=== PATIENT | female | born 1950 | race Caucasian/White ===

== ENCOUNTER → 2018-10-19 | Outpatient (REF) | payer MEDICARE ==
[~2018-10-19] VITALS: Ht 149.9 cm; Wt 68.9 kg
[~2018-10-19] MED LIST: AMBIEN5 MG PO; AMLODIPINE5 MG PO; AMOXICILLIN/CL875 MG PO; CALTRATE PLS PO; FLONASE NASAL50 MCG; HYDROCHLOROT12.5 MG PO; LISINOPRIL 20 MG PO; LYSINE1000 MG PO; PANTOPRAZOLE SO40 M1 PO; PROLIA60 MG/ML SC; TRAZODONE50 MG PO; VITAMIN E400 UNIT PO; WELLBUTRIN150 M1 PO; XANAX0.25 MG PO; [UNRECOGNIZED DRUG - OTHER] PO
== END | disposition home or self-care (01) ==
LOC: INF 10:00
PROVIDERS: ATTEND Internal Medicine
DX: M81.0 Age-related osteoporosis without current pathological fracture (principal)
CPT/HCPCS: J0897

== ENCOUNTER 2023-09-14 20:22 | Emergency (ER) | payer MEDICARE ==
[~2023-09-14] VITALS: Ht 149.9 cm; Wt 68.0 kg
[2023-09-14] VITALS (7 sets, daily range): BP systolic 106–121; BP diastolic 47–64
[~2023-09-14 20:22] MED LIST changes: -AMLODIPINE5 MG PO; +NORVASC5 M1 PO
[2023-09-14] MEDS ORDERED: COZAAR50 MG PO (21:24)
[2023-09-14] MEDS ORDERED: TRAZODONE50 MG PO ×2 (21:25→21:30)
[2023-09-14] MEDS ORDERED: TRAMADOL HCL50 MG PO (21:26)
[2023-09-14] MEDS ORDERED: WELLBUTRIN XL300 MG PO (21:27)
[2023-09-14] MEDS ORDERED: LOSARTAN POTASS50 MG PO (21:30)
[2023-09-14 21:35] LABS: URINE BILIRUBIN - DIPSTICK Negative (NEGATIVE); URINE BLOOD DIPSTICK Trace-intact (NEGATIVE); URINE GLUCOSE - DIPSTICK Negative (NEGATIVE); URINE KETONE 15 mg/dL (NEGATIVE); URINE LEUK ESTERASE Negative (NEGATIVE); URINE NITRITE - DIPSTICK Negative (Negative); URINE PH 5.5 (4.5-8.0); URINE PROTEIN - DIPSTICK Negative (NEG-TRACE); URINE SPECIFIC GRAVITY >=1.030; URINE UROBILINOGEN - DIPSTICK 0.2 E.U./dL (0.2)
[2023-09-14 21:36] LABS: BASO% 0.1 % (0-3); EOS% 0.2 % (0-8); HEMATOCRIT 40.3 % (37.0-47.0); HEMOGLOBIN 13.4 g/dl (12.0-16.0); IMMATURE GRANULOCYTES 0.3 % (0.0-5.0); LYMPH% 6.2 % (15-41); MEAN CELL VOLUME 94.2 fL CALC (80.0-100.0); MEAN CORPUSCULAR HGB 31.3 pG CALC (26.0-32.0); MEAN CORPUSCULAR HGB CONC 33.3 g/dL CAL (32.0-36.0); MONO% 9.6 % (2-13); NEUT# 18.37 thou/uL (2.00-7.15); NEUT% 83.6 % (42-76); RED BLOOD COUNT 4.28 mill/uL (4.20-5.60)
[2023-09-14 21:36] LABS: URINE COLOR Yellow
[2023-09-14 21:47] LABS: ALBUMIN 3.8 g/dL (3.2-5.0); ALKALINE PHOSPHATASE 93 u/l (38-126); AMYLASE 45 u/l (30-110); ANION GAP 11 (6-22 (CALC)); BILIRUBIN, TOTAL 0.4 mg/dL (0.02-1.3); BUN 25 mg/dL (8-23); BUN/CREATININE RATIO 28 (12-20 (CALC)); CARBON DIOXIDE 23 mmol/l (22-30); CHLORIDE 110 mmol/l (95-108); CREATININE 0.9 mg/dL (0.5-1.0); GFR FOR AFR.AMER. > 60 ML/MIN (>=60 (CALC)); GFR OTHER RACES > 60 ML/MIN (>=60 (CALC)); LIPASE 50 u/l (23-300); POTASSIUM 4.1 mmol/l (3.5-5.1); SGOT/AST 26 u/l (9-36); SODIUM 140 mmol/l (137-146); TOTAL PROTEIN 6.1 g/dL (6.3-8.2)
[2023-09-14] MEDS ORDERED: CIPROFLOXACN500 MG PO (23:23)
[2023-09-14] MEDS ORDERED: TAMSULOSIN0.4 MG PO (23:23)
[2023-09-14] MEDS ORDERED: IBUPROFEN600 MG PO (23:23)
== END 2023-09-14 23:54 | disposition home or self-care (01) ==
LOC: ED 20:22
PROVIDERS: Family Medicine
DX: K57.32 Diverticulitis of large intestine without perforation or abscess without bleeding (principal); N20.0 Calculus of kidney; K80.20 Calculus of gallbladder without cholecystitis without obstruction; I10 Essential (primary) hypertension; K21.9 Gastro-esophageal reflux disease without esophagitis; F32.A Depression, unspecified; Z20.822 Contact with and (suspected) exposure to COVID-19